=== PATIENT | female | born 1995 | race Caucasian/White ===

== ENCOUNTER 2017-09-06 13:54 | Emergency (ER) | payer BC ==
[2017-09-06 14:40] LABS: BASOPHILS 0.1 % (0-2); EOSINOPHILS 0 % (0-7); HEMATOCRIT 39.4 % (36.0-48.0); HEMOGLOBIN 13.3 g/dL (12-16); IMMATURE GRANULOCYTES 0.2 % (0-5); LYMPHOCYTES 5.9 % (15-50); MCH 29.5 pg (26.0-34.0); MCHC 33.8 g/dL (31.0-37.0); MCV 87.4 fL (80.0-100.0); MEAN PLATELET VOLUME 10.2 fL (7.4-10.4); NEUTROPHILS 90.8 % (40-80); PLATELET COUNT 210 10x3/uL (130-400); RBC 4.51 10x6/uL (4.00-5.40); RDW 12.4 % (11.5-14.5); WBC 14.1 10x3/uL (4.8-10.8)
[2017-09-06 14:45] LABS: APPEARANCE CLEAR (CLEAR); BILIRUBIN NEGATIVE (NEGATIVE); COLOR YELLOW (YELLOW); GLUCOSE NEGATIVE (NEGATIVE); KETONE NEGATIVE (NEGATIVE); NITRITE NEGATIVE (NEGATIVE); PROTEIN NEGATIVE (NEGATIVE); UROBILINOGEN NORMAL (NORMAL)
[2017-09-06 14:52] LABS: ALBUMIN 3.7 g/dL (3.4-5.0); ALKALINE PHOSPHATASE 68 U/L (46-116); ALT (SGPT) 19 U/L (10-68); BILIRUBIN - TOTAL 0.28 mg/dL (0.2-1.3); CALC OSMOLALITY 286 mosm/kg (275-300); CALCIUM 8.6 mg/dL (8.5-10.1); CARBON DIOXIDE 24.7 mmol/L (21.0-32.0); CHLORIDE - SERUM 106 mmol/L (98-107); CREATININE - SERUM 0.8 mg/dL (0.6-1.3); GLUCOSE 144 mg/dL (74-106); POTASSIUM - SERUM 3.7 mmol/L (3.5-5.1); PROTEIN - SERUM 7.5 g/dL (6.4-8.2); SODIUM 143 mmol/L (136-145); UREA NITROGEN 11 mg/dL (7-18); eGFR NON AFRICAN AMERICAN > 90 mL/min (90-120)
[2017-09-06 14:56] LABS: AMYLASE - SERUM 25 U/L (25-115); HCG - QUANTITATIVE (MATERNAL) 0 mIU/mL; LIPASE 51 U/L (73-393)
== END 2017-09-06 19:18 | disposition home or self-care (01) ==
LOC: D.ER 13:54
PROVIDERS: Family Medicine
DX: N83.209 Unspecified ovarian cyst, unspecified side (principal); E06.3 Autoimmune thyroiditis

== ENCOUNTER → 2018-08-09 08:27 | Outpatient (CLI) | payer BC | END | disposition home or self-care (01) | LOC: D.US 08-03 11:00 | PROVIDERS: ATTEND Obstetrics & Gynecology | DX: R10.2 Pelvic and perineal pain (principal) ==

== ENCOUNTER 2020-02-17 20:16 | Inpatient (IN) | payer BC, MEDICAID ==
[~2020-02-17] VITALS: Ht 160 cm; Wt 111.6 kg
[2020-02-17 21:11] VITALS: BP 123/64; Ht 160 cm; Wt 111.6 kg
[2020-02-17 22:02] LABS: HEMATOCRIT 32.1 % (36.0-48.0); HEMOGLOBIN 10.3 g/dL (12-16); MCH 27.2 pg (26.0-34.0); MCHC 32.1 g/dL (31.0-37.0); MCV 84.7 fL (80.0-100.0); MEAN PLATELET VOLUME 10.5 fL (7.4-10.4); RBC 3.79 10x6/uL (4.00-5.40); RDW 13.8 % (11.5-14.5); WBC 7.8 10x3/uL (4.8-10.8)
[2020-02-17 22:17] LABS: UDS - AMPHET NEGATIVE QUAL (NEGATIVE); UDS - BARB NEGATIVE QUAL (NEGATIVE); UDS - BENZO NEGATIVE QUAL (NEGATIVE); UDS - COCAINE NEGATIVE QUAL (NEGATIVE); UDS - OPIATE NEGATIVE QUAL (NEGATIVE); UDS - PCP NEGATIVE QUAL (NEGATIVE); UDS - THC NEGATIVE QUAL (NEGATIVE)
[2020-02-18] MEDS ORDERED: SYNTHROID50 MCG PO (20:37)
[2020-02-19 02:09] LABS: HEMATOCRIT 28.5 % (36.0-48.0); HEMOGLOBIN 9.2 g/dL (12-16)
[2020-02-19 07:17] VITALS: BP 109/50
--- NOTE | 2020-02-19 07:26 | NUR ---
SITTING UP IN BED- BABY AT BREAST. STATES IS FEELING BETTER. DENIES DIZZINESS. INFORMED THAT WHEN FINSIHED WITH FEEDING WILL MOVE HER TO NEW ROOM.
--- NOTE | 2020-02-19 08:25 | NUR ---
STATES IS READY TO TRANSFER. DENIES DIZZINESS. AMBULATORY TO W/C WITHOUT PROBLEMS. TRANSFERED TO ROOM 1221 WITH INFANT. REPORT TO SHAQ DEL TORO.
--- NOTE | 2020-02-19 08:35 | NUR ---
RECEIVED PT FROM L&D VIA WHEELCHAIR. PT AMBULATED TO BED WITHOUT ASSISTANCE. DENIES DIZZINESS. ORIENTED TO ROOM AND UNIT. MALE VISITOR AT BEDSIDE. BABY AT BEDSIDE IN OPEN CRIB. INSTRUCTED PT TO CALL FOR ASSISTANCE FIRST TIME UP TO VOID. STATES UNDERSTANDING. NO NEEDS OR CONCERNS VOICED AT THIS TIME.
--- NOTE | 2020-02-19 09:25 | NUR ---
PT AUTOMOTIVE PROJECT ENGINEER LIGHT STATING SHE NEEDS TO GO TO BATHROOM. ASSISTED PT TO BATHROOM; NO DIZZINESS REPORTED BY PT. PT VOIDED 400CC URINE WITHOUT DIFFICULTY. PERICARE PERFORMED. PT RETURNED TO BED WITHOUT ASSISTANCE. NO NEEDS VOICED AT THIS TIME. MALE VISITOR REMIANS AT BEDSIDE WITH BABY IN OPEN CRIB ALSO AT BEDSIDE.
--- NOTE | 2020-02-19 11:10 | NUR ---
ROUNDS MADE. PT. SITTING UP IN BED WITH BABY IN ARMS, . PT STATES SHE NEEDS TO GO TO BATHROOM. PLACED IN OPEN CRIB AND SWADDLED. PT UP TO BATHROOM UNASSISTED; NO C/O DIZZINESS OR LIGHT-HEADEDNESS. VOIDED 200CC WITHOUT DIFFICULTY. AJAY CARE DONE BY PT. ICE PACK GIVEN FOR PERIENEUM. PT REQUESTS PAIN MEDICATION. MEDS GIVEN.
--- NOTE | 2020-02-19 13:20 | NUR ---
ROUNDS MADE. PT SITTING UP IN BED WITH BABY IN ARMS. PT STATES GOOD PAIN RELIEF WITH TYLENOL #3 AND TORADOL. NO OTHER NEEDS OR CONCERNS VOICED AT THIS TIME.
[2020-02-19 13:30] VITALS: BP 107/59
--- NOTE | 2020-02-19 16:15 | NUR ---
ROUNDS MADE. PT SITTING UP IN BED CHANGING BABY. MALE VISITOR AT BEDSIDE. PT REQUESTS PAIN MED. TYLENOL #3 GIVEN. SPRITE AND CRACKERS GIVEN-PT C/O 'INDIGESTION', BUT DENIES NAUSEA OR DIZZINESS. NO OTHER NEEDS OR CONCERNS VOICED AT THIS TIME.
--- NOTE | 2020-02-19 18:35 | NUR ---
ROUNDS MADE. PT SITTING UP IN BED TALKING ON PHONE. MALE VISITOR AT BEDSIDE. IN MOTHER'S ARMS. NO NEEDS OR CONCERNS AT THIS TIME.
[2020-02-19 20:25] VITALS: BP 118/61
--- NOTE | 2020-02-19 20:25 | NUR ---
ASSESSMENT COMPLETE PER FLOWSHEET, VSS, NO PROBLEMS NOTED, PT REPORTS NO PROBLEMS WITH BLEEDING OR CLOTS, FF, U2B, WILL MONITOR.
--- NOTE | 2020-02-19 21:45 | NUR ---
PT HOLDING INFANT, VISITING WITH FOB, RQUESTED AND PROVIDED ICE PACK, DENIES FURTHER NEEDS
--- NOTE | 2020-02-19 23:36 | NUR ---
IN ROOM TO GIVE PAIN MED, NO PROBLEMS NOTED, WATER TAKEN TO PT AND SPOUSE. WILL MONITOR.
[2020-02-20] VITALS (10 sets, daily range): BP systolic 109–130; BP diastolic 50–78
--- NOTE | 2020-02-20 00:24 | NUR ---
PT AWAKE, TALKING TO FOB, DENIES NEEDS OR PAIN AT THIS TIME
--- NOTE | 2020-02-20 02:03 | NUR ---
Room check complete, mom resting in bed, request that go to [facility] for mom to rest, pt denies any problems at this time.
--- NOTE | 2020-02-20 04:05 | NUR ---
PT RESTING QUIETLY, NO PROBLEMS NOTED
--- NOTE | 2020-02-20 06:06 | NUR ---
Room check complete, no problems noted, pt sitting up in bed.
--- NOTE | 2020-02-20 06:18 | NUR ---
PHARMACY NOTIFIED FOR SYNTHROID
--- NOTE | 2020-02-20 06:29 | NUR ---
PT AWAKE, SITTING UP IN BED, FOB HOLDING , ADM SYNTROID PER MD ORDERS, SEE EMAR, PT DENIES NEEDS AT THIS TIME
[2020-02-20 06:47] LABS: MCH 26.6 pg (26.0-34.0); MCHC 31.4 g/dL (31.0-37.0); MCV 84.7 fL (80.0-100.0); RBC 2.29 10x6/uL (4.00-5.40); WBC 7.7 10x3/uL (4.8-10.8)
--- NOTE | 2020-02-20 06:50 | NUR ---
REPORT RECEIVED FROM Larua CONLEY RN.
[2020-02-20 07:14] LABS: HEMATOCRIT 19.4 % (36.0-48.0); HEMOGLOBIN 6.1 g/dL (12-16)
[2020-02-20 07:16] LABS: RAPID PLASMA REAGIN Non Reactive (Non Reactive)
--- NOTE | 2020-02-20 07:18 | NUR ---
CRITICAL LAB RESULTED. DR. MEJIA NOTIFIED BY Renee SANTIAGO RN. NO ORDERS RECEIVED AT THIS TIME.
--- NOTE | 2020-02-20 09:30 | NUR ---
THIS RN TO ROOM FOR IV START SALINE LOCK IN PLACE WILL NOT FLUSH. RIGHT HAND PIV D/C'D WITHOUT INCIDENT, PRESSURE HELD AND BANDAID APPLIED. 18G PIV INITIATED TO PT'S LEFT WRIST, FLUSHED AND SALINE LOCKED. PT RODDY WELL. WILL OBTAIN BLOOD FROM BLOOD BANK.
--- NOTE | 2020-02-20 09:30 | NUR ---
PT MEDICATED FOR PAIN AND PREMEDICATED FOR BLOOD TRANSFUSION PER ORDERS.
--- NOTE | 2020-02-20 09:48 | NUR ---
TRANSFUSION OF 1ST UNIT PRBC STARTED. PRBC INFUSING AT 75CC/HR VIA IVP THROUGH PIV AT LEFT WRIST. CALL LIGHT IN REACH. MALE VISITIOR AT BEDSIDE.
--- NOTE | 2020-02-20 10:10 | NUR ---
VSS. NO C/O ITCHING, SHORTNESS OF BREATH. IV INCREASED TO 250CC/HR TO INFUSE PRBC. CALL LIGHT IN REACH.
--- NOTE | 2020-02-20 10:46 | NUR ---
PT SITTING UP IN BED, DROWSY. VSS. NO C/O ITCHING OR SHORTNESS OF BREATH. PRBC CONT TO INFUSE.
--- NOTE | 2020-02-20 11:19 | NUR ---
1ST UNIT PRBC INFUSION COMPLETE.
--- NOTE | 2020-02-20 11:56 | NUR ---
2ND UNIT PRBC INFUSING AT 75CC/HR.
--- NOTE | 2020-02-20 12:32 | NUR ---
VSS. PT SITTING UP IN BED WATCHING TV. NO C/O SHORTNESS OF BREATH OR ITCHING. IV INCREASED TO 250CC/HR. CONT. TO MONITOR.
--- NOTE | 2020-02-20 14:30 | NUR ---
INFUSION OF 2ND UNIT PRBC COMPLETE.
--- NOTE | 2020-02-20 16:35 | NUR ---
TO ROOM FOR VS. PT SITTING UP IN BED, BABY IN ARMS. NO NEEDS OR CONCERNS AT THIS TIME.
--- NOTE | 2020-02-20 17:30 | NUR ---
DR. MEJIA IN TO SEE PT. NO NEW ORDERS AT THIS TIME.
--- NOTE | 2020-02-20 20:00 | NUR ---
ASSESSMENT COMPLETE PER FLOWSHEET, NO PROBLEMS NOTED, PT SITTING UP IN BED HOLDING , VSS, WILL MONITOR.
--- NOTE | 2020-02-20 21:00 | NUR ---
PT AWAKE LAYING IN BED RESTING QUIETLY, HOLD
--- NOTE | 2020-02-20 22:25 | NUR ---
PT SITTING IN BED HOLD INFANT RESTING, NO PROBLEMS NOTED.
--- NOTE | 2020-02-20 23:40 | NUR ---
ROOM CHECK COMPLETE, PT RESTING QUIETLY, NO PROBLEMS NOTED, WILL MONITOR.
--- NOTE | 2020-02-20 23:45 | NUR ---
PT CRATING AND MOVING ESTIMATOR LIGHT, C/O HENDERSON, REQUESTED AND ADM TYLENOL #3 PER MD ORDERS, SEE EMAR, WITH FRESH H20, PT DENIES FURTHER NEEDS, INFANT LAYING ON BED WITH PT
--- NOTE | 2020-02-21 00:32 | NUR ---
PT HOLDING INFANT, RATES HENDERSON PAIN 5/10, REQUESTED AND SERVED FRESH H20 AND [place], PT DENIES FURTHER NEEDS
--- NOTE | 2020-02-21 02:15 | NUR ---
PT ASLEEP, NO PROBLEMS NOTED, WILL MONITOR
--- NOTE | 2020-02-21 03:18 | NUR ---
ROOM CHECK COMPLETE, PT ALSEEP, NO PROBLEMS NOTED, WILL MONITOR
--- NOTE | 2020-02-21 04:38 | NUR ---
ROOM CHECK COMPLETE, PT SLEEPING, NO PROBLEMS NOTED, WILL MONTIOR.
--- NOTE | 2020-02-21 06:20 | NUR ---
PT SITTING UP IN BED FEEDING , NO PROBLEMS NOTED, WILL MONITOR.
[2020-02-21 07:30] VITALS: BP 106/71
--- NOTE | 2020-02-21 07:30 | NUR ---
RECEIVED PT SITTING UP IN BED. AWAKE. VSS. HRRR WITHOUT AUDIBLE MURMUR. BBS CLEAR. BS X 4. ABDOMEN SOFT/NON-DISTENDED. FUNDUS FIRM AT U/1. RUBRA LOCHIA SMALL AMT. PT DENIES HEAVY BLEEDING OR PASSING CLOTS. STATES PASSING GAS. NO BM YET. PERINEUM WITHOUT EDEMA NOTED. NEG HOMANS' SIGN. PPP. MILD, NON-PITTING EDEMA NOTED TO BLE. SR UP X 2. CALL LIGHT IN REACH.
--- NOTE | 2020-02-21 07:46 | NUR ---
TORADOL 10 MG GIVEN PO ORDERED FOR PT C/O PAIN. INSTRUCTED ON MED. VERBALIZES UNDERSTANDING. PT ALSO PROVIDED MORE DERMAPLAST SPRAY PER PT REQUEST.
--- NOTE | 2020-02-21 08:04 | NUR ---
DR MEJIA VISITS WITH PT.
[2020-02-21 09:18] LABS: HEMATOCRIT 28.1 % (36.0-48.0); HEMOGLOBIN 9.1 g/dL (12-16)
--- NOTE | 2020-02-21 09:30 | NUR ---
PT SITTING UP IN BED. CARING FOR INFANT. DENIES C/O OR NEEDS.
--- NOTE | 2020-02-21 10:59 | NUR ---
PT SITTING UP IN BED. CARING FOR INFANT. DENIES PAIN OR NEEDS.
--- NOTE | 2020-02-21 11:28 | NUR ---
SL DC'D WITH [facility]HELON INTACT. PRESSURE BANDAGE TO SITE.
[2020-02-21 11:42] VITALS: BP 118/79
[2020-02-21] MEDS ORDERED: TYLENOL W/CODEI1 TAB PO (12:16)
--- NOTE | 2020-02-21 13:40 | NUR ---
PT C/O PAIN TO PERINEUM AND BACK. TORADOL 10 MG AND TYLENOL #3 2 TABS GIVEN PO ORDERED. PT INSTRUCTED ON MEDS. VERBALIZES UNDERSTANDING.
--- NOTE | 2020-02-21 15:40 | NUR ---
DISCHARGE INSTRUCTIONS GIVEN TO PT. PT VERBALIZES UNDERSTANDING OF ALL INSTRUCTIONS. COPIES GIVEN TO PT. RX FOR TYLENOL#3 GIVEN PO ORDERED. PT PREPARES FOR DISCHARGE.
--- NOTE | 2020-02-21 16:40 | NUR ---
PT READY FOR DISCHARGE. DISCHARGED IN STABLE CONDITION WITH VIA WHEELCHAIR TO PRIVATE VEHICLE.
--- NOTE | 2020-02-25 11:24 | MORECARE ---
CASE MANAGEMENT DISCHARGE SUMMARY PATIENT: CHITO BRUNNER UNIT: [id number] ADM DATE: 02/17/20 AGE: 24 : [birth year] SEX: F ROOM/BED: D.1221 AUTHOR: BRICE JAMES PHYSICIAN: REFERRING PHYSICIAN: SUREKHA MEJIA MD DATE OF SERVICE: 02/25/20 Discharge Plan Patient Name: CHITO BRUNNER Facility: [facility]:[place] : 1995 Planned Disposition: Home Anticipated Discharge Date: 02/21/20 Discharge Date: 02/21/2020 Expected LOS: 4 Initial Reviewer: [email or web address] Initial Review Date: 02/17/2020 Generated: 02/25/20 12:24 pm Patient Name: CHITO BRUNNER Page [phone] at 1124 All edits/amendments must be made on the electronic document DICTATION DATE: 02/25/20 1124 PRECISION PRINTING WORKER: STIVEN 02/25/20 1124 RPT#: [id number] DC DATE:02/21/20 STATUS: DIS IN [facility] [address] [place] [address] END OF REPORT
== END 2020-02-21 16:40 | disposition home or self-care (01) | DRG 807 ==
LOC: D.LDO 20:16 → D.LD 20:17 → D.WS 20:17
PROVIDERS: ADMIT Obstetrics & Gynecology; ATTEND Obstetrics & Gynecology
PROC: 10907ZC Drainage of Amniotic Fluid, Therapeutic from Products of Conception, Via Natural or Artificial Opening (ICD-10-PCS; 2020-02-18)
PROC: 3E033VJ Introduction of Other Hormone into Peripheral Vein, Percutaneous Approach (ICD-10-PCS; 2020-02-18)
PROC: 10E0XZZ Delivery of Products of Conception, External Approach (ICD-10-PCS; principal; 2020-02-19)
PROC: 0KQM0ZZ Repair Perineum Muscle, Open Approach (ICD-10-PCS; 2020-02-19)
DX: O99.824 Streptococcus B carrier state complicating childbirth (principal); Z37.0 Single live birth; Z3A.39 39 weeks gestation of pregnancy; O70.1 Second degree perineal laceration during delivery